=== PATIENT | female | born 1980 | race Caucasian/White ===

== ENCOUNTER 2019-12-19 00:18 | Outpatient (CLI) | payer OTHER, SELFPAY ==
[2019-12-19 19:45] LABS: SARS-CoV-2 RNA PCR Negative
== END 2019-12-19 00:19 | disposition home or self-care (01) ==
LOC: ANHCOVIDDT 00:18
PROVIDERS: PCP Family Medicine; Visit Provider Plastic Surgery
DX: Z01.818 Encounter for other preprocedural examination (principal); Z11.59 Encounter for screening for other viral diseases
CPT/HCPCS: 87635; C9803; U0003

== ENCOUNTER 2019-12-21 02:13 | Day surgery (SDC) | payer OTHER, SELFPAY ==
[2019-12-07 14:55] VITALS: BMI 19.4
--- NOTE | 2019-12-20 20:49 | HP_ITS ---
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 HISTORY: The 39-year-old patient of Dr. Kirk presents with a neoplasm on the left side of her nose. This is just at the upper ala. The lesion is rough and appears to be at least 3 mm in diameter. She says it has bled a couple times and scales frequently. A 2 mm punch biopsy revealed squamous cell carcinoma. She has come today for excision of this and reconstruction as indicated. We suspect the neoplasm actually is closer to 1 cm in diameter. She is prepared for excision with frozen section, possible local tissue transfer or skin graft and she prefers local anesthetic. She is aware of the scarring that could be bruising, bleeding and some deformity to her nose. PAST MEDICAL HISTORY: ALLERGIES: ERYTHROMYCIN BASE CAUSES HIVES AND SWELLING, ERYTHROMYCIN ALSO. CURRENT MEDICINES: Include vitamins. None other. SURGICAL HISTORY: She has no surgical history. She has had 2 live child births. She is a nonsmoker. REVIEW OF SYSTEMS: Otherwise negative. FAMILY HISTORY: Noncontributory. SOCIAL HISTORY: She lives in [place]. PHYSICAL EXAMINATION: GENERAL: She is alert, cooperative. She is 5 feet 8 inches and weighs 128 pounds. She is in no distress. HEENT: Reveals the lesion as stated on the left side of the nose toward the talar groove. No palpable adenopathy. CHEST: Clear to auscultation. HEART: Regular rate and rhythm by palpation. ABDOMEN: Soft, nontender. EXTREMITIES: Normal. ASSESSMENT: Squamous cell carcinoma on the left side of the nose. PLAN: Excision with frozen section and reconstruction as indicated. This to be under local anesthetic. D I MT: Thomas REYNA
[2019-12-21] VITALS (10 sets, daily range): BP systolic 91–125; BP diastolic 51–77; PULSE 69–101; RESP 14–20; TEMP 37.1; O2SAT 97–100
--- NOTE | 2019-12-21 10:07 | WPDHPUPDATE1 ---
History and Physical Update Update Date/Time: 12/21/19 10:07 History and Physical has been reviewed, including an updated exam of the patient. There are NO changes in the patient's condition. Risks, benefits, and alternatives have been discussed and questions answered. Patient agrees to proceed with procedure.
[2019-12-21] MEDS: LIDO 1%/EPINEPHRINE 1:100,000 20 ML VIAL INFILTRATE (10:34)
--- NOTE | 2019-12-21 11:49 | PM.OP ---
Procedure Note - Brief Procedure Note - Brief Date of procedure: 12/21/19 Pre-op diagnosis: SCC Left Side Of Nose Post-op diagnosis: same Procedure performed: 0.8 cm excision of SCC of left side of nose( alar groove) with FS and LTT 2.0 sq cm. Anesthesia: local Surgeon: Jimmie Welsh MD Estimated blood loss (mL): 3 Drains: No Packing: No Pathology: yes Complications: No immediate complications Condition: stable Disposition: same day
--- NOTE | 2019-12-21 16:05 | PM.PROC ---
Procedure Note - Detailed Date of procedure: 12/21/19 Pre-op diagnosis: SCC Left Side Of Nose Post-op diagnosis: same Procedure performed: 1 cm excision of squamous cell carcinoma of the left side of the nose with frozen section local tissue transfer 2.0 sq cm Description of procedure: the small red spot on the anterior end of the left alar groove was marked as the patient waited in the holding area. she was 10 taken to the operating room and placed supine on the operating table. She was connected to monitors. The face was prepped and draped in the usual fashion. Betadine was wiped away from the biopsy site. The small roughened area of red skin was identified that resembled an actinic keratosis. A marking was placed just beyond that in a [place] of [place]. This area was infiltrated with 1% lidocaine with epinephrine. The site was excised into the deep dermis. The aspect nearest the alar rim was marked with a suture for 12:00 p.m.. This tissue was sent to pathology. The pathologist reported that there were biopsy changes only and margins were free. The opening on the and her groove was too large to close directly. A small rotation flap was designed elevated and inset. Antibiotic ointment was applied and the patient was discharged with instructions in wound care and follow-up in stable condition Surgeon: Jimmie Welsh MD
== END 2019-12-21 12:10 | disposition home or self-care (01) ==
PROVIDERS: PCP Family Medicine; Visit Provider Plastic Surgery
PROC: (CPT 14060; principal; 2019-12-21 09:30)
DX: C44.321 Squamous cell carcinoma of skin of nose (principal)
CPT/HCPCS: 14060; 88305; 88331; A9270